=== PATIENT | male | born 1945 | race Caucasian/White ===

== ENCOUNTER 2021-07-27 14:28 | Inpatient (IN) | payer MEDICARE, SELFPAY ==
[2021-07-27] VITALS (45 sets, daily range): BP systolic 67–131; BP diastolic 34–91; PULSE 58–115; RESP 14–44; TEMP 36.4–36.6; O2SAT 90–100; BMI 26.9
--- NOTE | 2021-07-27 14:40 | P.HP_ITS ---
Providers/Chief Complaint Admitting Physician: Boogie Pugh MD Chief Complaint: GI Bleed History of Present Illness Adiel Nation III is a 76 year old male transferred from [facility] with history of blood in his stool, more maroon in nature currently. He reports early this morning he started having blood, and he has had 6 large bowel movements. The last one was approximately 2 hours ago. After arriving in the emergency department at [place] he was noted to be somewhat hypotensive. He was given fluid and eventually a low-dose of norepinephrine. Initial hemoglobin in the 10 range. He also received vitamin K. He reports never having history of a colonoscopy. There are some notes that he had an ERCP although he cannot remember this. He reports no vomiting. He is slightly nauseated. He did not have any pre-existing abdominal pain prior to the bleeding. He reports he has shortness of breath currently but this is chronic. He relates this to his CHF and COPD. No recent fevers. He is vaccinated for Covid. No cough. He does use aspirin daily as per his medication list. He is on Coumadin for atrial fibrillation. He does take ibuprofen on occasion. Upon arrival to [facility] he did have a bowel movement, with dark stool. Review of Systems General: Reports: 10 or more systems reviewed and unremarkable except in HPI and below Const: Denies: fever(s) or chills Eyes: Denies: change in vision ENMT: Denies: throat pain Card: Denies: chest pain Resp: Reports: dyspnea; Denies: productive cough or non-productive cough GI: Reports: hematochezia; Denies: abdominal pain or vomiting : Denies: flank pain Musc: Denies: neck pain Skin/Breast: Denies: rash Neuro: Denies: headache(s) Psych: Denies: anxiety or depression Endo: Denies: polyuria Ron/Lymph: Denies: easy bruising All/Imm: Denies: urticaria PFSH Acute PFSH: Medical History (Updated 07/27/21 @ 14:51 by Boogie Pugh MD) Atrial fibrillation Carotid artery stenosis CHF (congestive heart failure) Chronic kidney disease COPD (chronic obstructive pulmonary disease) Gout History of common carotid artery stent placement Restless leg syndrome Sleep apnea Type 2 diabetes mellitus Surgical History (Updated 07/27/21 @ 14:51 by Boogie Pugh MD) History of amputation Several toes following cardiac surgery History of coronary artery bypass graft Mitral valve replaced Tissue valve Family History (Updated 07/27/21 @ 15:03 by Boogie Pugh MD) Other CAD (coronary artery disease) Social History (Updated 07/27/21 @ 15:03 by Boogie Pugh MD) Smoking and tobacco status: former smoker Alcohol intake: never Physical Exam Narrative: EXAM NARRATIVE: General exam no apparent distress HEENT: Pupils equally round. Oropharynx clear. Neck is supple no lymphadenopathy thyromegaly Cardiovascular irregular, irregular without murmur Lungs clear to auscultation bilaterally. Diminished breath sounds are noted bilaterally Abdomen is soft, positive bowel sounds. No significant tenderness. No obvious organomegaly. exam is deferred Extremities no cyanosis clubbing or edema, cap refill brisk Skin no rash Neuro no obvious focal deficits. Data Other data: White blood cell count 10.1, hemoglobin 10.4, platelet count 185 Occult blood stool positive INR 3.1 Sodium 138, potassium 5.5, chloride 103, bicarb 24, creatinine 1.96, calcium 8.6, albumin 3.5, bilirubin 0.6, alk phosphatase 87, AST 14, ALT 12 CTA abdomen and pelvis demonstrates acute sigmoid diverticulitis with no perforation or abscess, stable 3.3 abdominal aortic aneurysm. Cholelithiasis, prostate enlargement are noted EKG demonstrates atrial fibrillation, normal axis, Q waves inferiorly, rate of 85 A&P Assessment and plan (1) GI bleed: Acute GI bleed, bright red blood per rectum according to family, patient. CT scan demonstrated diverticulitis which could be consistent with bright red blood per rectum. Vitamin K given at outside hospital. Repeat INR here. Serial hemoglobins Hypotension associated with GI bleed, improved with IV fluids. Continue to monitor closely. Will try to avoid lower GI intervention(colonoscopy) currently secondary to diverticulitis. Protonix IV every 12 hours secondary to dark stools seen here more consistent with upper bleeding Check lactate On presentation here patient has dark stool more suggestive of upper GI bleeding. Consider upper endoscopy in the near future for delineation. GI consulted. Status: Acute (2) Anemia: Secondary to above, see above Status: Acute (3) Hypotension: Improved with fluids. Continue to monitor. Status: Acute (4) Diverticulitis: Cipro and Flagyl IV Blood cultures Status: Acute (5) Acute kidney injury: Serial creatinine Status: Acute (6) Hyperkalemia: Mild elevation. Recheck in a.m. Status: Acute Additional A&P Information Chronic kidney disease History of mitral valve replacement, tissue valve. History of atrial fibrillation. Hold anticoagulation. Restart beta-venkatesh when possible. COPD. No evidence of exacerbation. DuoNeb as needed Diabetes type 2. Sliding scale insulin. Coronary artery disease with history of prior bypass. Currently no chest discomfort. CHF, unknown type, currently without decompensation Multiple other medical problems as outlined in past medical history Full code SCDs for DVT prophylaxis. Anticoagulation contraindicated secondary to GI bleeding. Attestations Medical Necessity Statement*: Will need greater than 2 midnight stay for evaluation and treatment of GI bleeding, diverticulitis, anemia, hypotension Time Spent in Patient Care: Greater than 35 minutes Critical Care Time: Critical Care Time (min): 56 Other Attestations: The high probability of a clinically significant, sudden or life threatening deterioration of the patient's [pulmonary, renal, infectious disease, GI] system(s) required my full and direct attention, intervention and personal management. The critical care time is as shown. 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
--- NOTE | 2021-07-27 14:50 | XR_ITS ---
WS: [id number] XR chest 1V portable [id number] REASON FOR EXAM: dyspnea FINDINGS: Status post coronary artery bypass surgery. Mild ectasia and tortuosity thoracic aorta. The heart is mildly enlarged. No active pulmonary parenchymal or pleural disease is identified. Mild degenerative changes in the mid and lower thoracic spine. XR/XR chest 1V portable [id number] IMPRESSION: No acute chest abnormality.
[2021-07-27] MEDS: metroNIDAZOLE IV 500 MG/100 ML PREMIX 100 MG IV ×2 (15:43→22:50)
[2021-07-27] MEDS: pantoprazole 40 mg SDV IVP (15:43)
[2021-07-27] MEDS: sodium chloride 0.9% 1,000 ML 75 ML IV (15:43)
[2021-07-27 16:40] LABS: Basophils % 0.3 %; Eosinophils # 0.1 10^3/uL (0.0-0.8); Eosinophils % 0.7 %; Hematocrit 23.8 % (42.0-52.0); Hemoglobin 7.5 g/dL (11.7-16.6); Lymphocytes # 1.2 10^3/uL (0.8-4.8); Lymphocytes % 14.1 %; Mean Corpuscular HGB Conc 31.5 g/dL (30.0-36.0); Mean Corpuscular Hemoglobin 30.2 pg (28.0-34.0); Mean Platelet Volume 11.7 fL (7.4-10.4); Monocytes # 0.7 10^3/uL (0.2-0.9); Monocytes % 7.9 %; Neutrophils % 76.8 %; Nucleated Red Blood Cells % 0 %; Platelet Count 172 10^3/cmm (130-400); Red Blood Count 2.48 10^6/uL (4.1-5.3); Red Cell Distribution Width 15.1 % (12.1-15.1); White Blood Count 8.6 10^3/uL (4.0-10.0)
[2021-07-27 16:53] LABS: INR 2.28 (0.8-1.2)
[2021-07-27 17:09] LABS: Alanine Aminotransferase 9 U/L (0-41); Alkaline Phosphatase 61 IU/L (40-130); Anion Gap 13.4 (5-19); Aspartate Amino Transferase 9 U/L (0-40); Blood Urea Nitrogen 70 mg/dL (8-23); Calcium 7.7 mg/dL (8.5-10.5); Carbon Dioxide 21 mmol/L (22-29); Chloride 107 mmol/L (98-107); Globulin 2.1 g/dL (1.3-4.6); Glucose 152 mg/dL (65-115); Osmolality Calculated 305 mOsm/kg (285-295); Potassium 5.4 mmol/L (3.5-5.1); Sodium 136 mmol/L (136-145); Total Bilirubin 0.4 mg/dL (0.15-1.2); Total Protein 5.1 g/dL (6.6-8.7)
[2021-07-27] MEDS: HYDROcodone-acetaminophen 5-325 mg Tablet 1 TAB PO (17:47)
[2021-07-27] MEDS: pantoprazole 40 MG in sodium chloride 0.9% (plus) 100 ML 20 MG IV ×2 (17:47→22:55)
[2021-07-27 17:51] LABS: Glucose Point of Care 172 mg/dL (70-110)
[2021-07-27] MEDS: sodium chloride 0.9% (100 ml) 100 ML (20:52)
[2021-07-27 22:22] LABS: Glucose Point of Care 142 mg/dL (70-110)
[2021-07-27] MEDS: HYDROcodone-acetaminophen 5-325 mg Tablet 2 TAB PO (22:49)
[2021-07-27] MEDS: insulin lispro 100 unit/1 mL SUBCUT (22:53)
[2021-07-27] MEDS: ciprofloxacin 400 MG/200 ML PREMIX 200 MG IV (22:56)
--- NOTE | 2021-07-27 22:59 | PC.NURSE ---
Addendum entered by Toby Jennings RN 07/28/21 00:14: witnessed blood transfusion verification Original Note: Secondary check of blood product conducted with Toby (Charge nurse at 2003), blood transfusion started at 2004, and first set of vitals taken at 1999. Blood infusion completed at 2259 and last set of vitals at 2303. Transfusion went well, with no complications.
[2021-07-28] VITALS (74 sets, daily range): BP systolic 76–132; BP diastolic 31–75; PULSE 0–110; RESP 14–40; TEMP 36.4–37.2; O2SAT 84–100; BMI 27.2
[2021-07-28 00:49] LABS: Hematocrit 25.6 % (42.0-52.0); Hemoglobin 8.1 g/dL (11.7-16.6)
[2021-07-28 01:10] LABS: Potassium 4.8 mmol/L (3.5-5.1)
[2021-07-28] MEDS: metroNIDAZOLE IV 500 MG/100 ML PREMIX 100 MG IV ×3 (02:45→20:04)
[2021-07-28] MEDS: pantoprazole 40 MG in sodium chloride 0.9% (plus) 100 ML 20 MG IV ×3 (04:25→13:23)
[2021-07-28 05:19] LABS: Basophils % 0.4 %; Eosinophils # 0.1 10^3/uL (0.0-0.8); Eosinophils % 1.7 %; Hematocrit 26.7 % (42.0-52.0); Hemoglobin 8.3 g/dL (11.7-16.6); Lymphocytes # 1.4 10^3/uL (0.8-4.8); Lymphocytes % 19.4 %; Mean Corpuscular HGB Conc 31.1 g/dL (30.0-36.0); Mean Corpuscular Hemoglobin 30.6 pg (28.0-34.0); Mean Corpuscular Volume 98.5 fl (80-94); Mean Platelet Volume 11.4 fL (7.4-10.4); Monocytes # 0.8 10^3/uL (0.2-0.9); Monocytes % 11.4 %; Neutrophils % 66.7 %; Nucleated Red Blood Cells % 0 %; Platelet Count 128 10^3/cmm (130-400); Red Blood Count 2.71 10^6/uL (4.1-5.3); Red Cell Distribution Width 15.4 % (12.1-15.1); White Blood Count 7.2 10^3/uL (4.0-10.0)
[2021-07-28 05:22] LABS: Add Urine Microscopic? NO; Charge for UA Resulting for Rev
[2021-07-28 05:26] LABS: Urine Appearance Clear (CLEAR); Urine Color Yellow (Yellow); pH Urine 5 (5-7)
[2021-07-28 05:27] LABS: Bilirubin Urine Neg (Negative); Blood Urine Neg (Negative); Glucose Urine UA Norm (Normal); Ketones Urine Negative (Negative); Leukocyte Esterase Urine Negative (Negative); Nitrate Urine Negative (Negative); Protein Urine Neg (Negative); Urobilinogen Urine Norm (Negative)
[2021-07-28 05:47] LABS: Alanine Aminotransferase 9 U/L (0-41); Albumin Level 3.1 g/dL (3.5-5.2); Alkaline Phosphatase 59 IU/L (40-130); Anion Gap 12.6 (5-19); Aspartate Amino Transferase 13 U/L (0-40); Blood Urea Nitrogen 66 mg/dL (8-23); Carbon Dioxide 21 mmol/L (22-29); Chloride 110 mmol/L (98-107); Globulin 2.1 g/dL (1.3-4.6); Glucose 109 mg/dL (65-115); Osmolality Calculated 308 mOsm/kg (285-295); Potassium 4.6 mmol/L (3.5-5.1); Sodium 139 mmol/L (136-145); Total Bilirubin 0.6 mg/dL (0.15-1.2); Total Protein 5.2 g/dL (6.6-8.7)
--- NOTE | 2021-07-28 06:36 | PC.NURSE ---
Shift Note Frequent safety and comfort rounds continue. Orders and/or nursing care completed as indicated. Patient monitored for response to intervention and treatment(s). Education provided patient and spouse. The patient received during the shift 1 unit of Whole blood. The H/H this morning was 8.5, despite the patient having three tarry/bloody stools during the night. Patient reports having 6/10 pain in the lower extremities, but remains in good spirits. AOX4, and is able to stand up and use the bedside commode. Currently the patient has a protonix drip running and a maintenance fluide of NS at 75 mLs/hr. Several times the monitor showed that the patient was hypotensive, yet the patient was never systematic and typically was moving around in the bed when the blood pressure cuff was tightening. The patient was also restless at times, constantly turning in the bed.
[2021-07-28 07:27] LABS: Glucose Point of Care 125 mg/dL (70-110)
--- NOTE | 2021-07-28 07:36 | PC.NURSE ---
check done then down to gi lab with crew at this time per wheel chair
--- NOTE | 2021-07-28 07:45 | P.ANESASSM_ITS ---
Pre-Anesthetic Assessment Pre-Anesthetic Assessment: Height/Weight: Height 1.75 m Weight 83.631 kg Temp Pulse Resp BP Pulse Ox 97.6 F 104 H 34 H 103/49 100 07/28/21 04:00 07/28/21 06:00 07/28/21 05:45 07/28/21 05:45 07/28/21 05:45 Preop Diagnosis: GI Bleed Proposed Procedure: Operation Date: 07/28/21 08:00 Proposed Procedures p EGD(Not Applicable) - Librado Duval MD Was Beta Dewayne taken within 24 hours: N/A Was Clonidine taken within 24 hours: N/A Last intake: Food 07/26/21 Liquids 07/27/21 Social: Social History: No alcohol and No tobacco Exam: Pre-Anes Outpt Exam: alert, oriented x 3 and clear to auscultation bilaterally (coarse) Airway: Submandibular: WNL Cervical ROM: WNL MP: 2 Dentition: False History/ROS: No significant history except as noted Pulmonary: Pulmonary: COPD, Sleep apnea and SOB CV/HEM: CV/HEM: Afib, Anemia, CAD, CHF, HTN and IN Comments: CABG 2005 6 vessel with MVR 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 Warfarin taken 07/26/21 : : Chronic renal failure Hepatic: Hepatic: None reported GI: GI: None reported Musc/skel: Musc/skel: Lower Back Pain Neuropsych: Neuropsych: None reported Anesthetic Plan: ASA status: 3 Anesthesia: MAC Risk of > 500 ml blood loss (7ml/kg in children): No Meds/Allergies Current Medications: Current Medications Generic Name Dose Route Start Last Admin Trade Name Freq PRN Reason Stop Dose Admin Hydrocodone Bitart /Acetaminophen 2 tab 07/27/21 21:28 07/27/21 22:49 Hydrocodone-Acet aminophen 5-325 Mg Tablet PO 2 tab Q4H PRN Administration MODERATE PAIN Sodium Chloride 1,000 mls @ 75 ml s/hr 07/27/21 14:45 07/28/21 07:06 Sodium Chloride 0.9% IV Infused .[id number] NEELIMA Infusion Metronidazole 500 mg in 100 mls @ 100 mls/hr 07/27/21 14:45 07/28/21 03:45 Flagyl Iv IV Infused Q6H NEELIMA Infusion Protocol Ciprofloxacin/Dext jc 400 mg in 200 mls @ 200 mls/hr 07/27/21 23:45 07/27/21 23:56 Cipro IV Infused Q12H NEELIMA Infusion Protocol Pantoprazole Sodiu m 40 mg/ 100 mls @ 20 mls/ hr 07/27/21 15:30 07/28/21 04:25 Sodium Chloride IV 8 mg/hr .Q5H NEELIMA 20 mls/hr Administration 8 MG/HR Insulin Human Lisp ro 0 unit 07/27/21 18:00 07/28/21 07:26 Insulin Lispro 1 00 Unit/1 Ml SUBCUT Not Given WM&BEDTIME NEELIMA Protocol PFSH Anesthesia PFSH: Medical History (Updated 07/27/21 @ 14:51 by Boogie Pugh MD) Atrial fibrillation Carotid artery stenosis CHF (congestive heart failure) Chronic kidney disease COPD (chronic obstructive pulmonary disease) Gout History of common carotid artery stent placement Restless leg syndrome Sleep apnea Type 2 diabetes mellitus Surgical History (Updated 07/27/21 @ 14:51 by Boogie Pugh MD) History of amputation Several toes following cardiac surgery History of coronary artery bypass graft Mitral valve replaced Tissue valve Family History (Updated 07/27/21 @ 15:03 by Boogie Pugh MD) Other CAD (coronary artery disease) Social History (Updated 07/27/21 @ 15:03 by Boogie Pugh MD) Smoking and tobacco status: former smoker Alcohol intake: never Data Anesthesia CBC & Chem 7: 07/28/21 04:30 07/28/21 04:30 Other Labs: Laboratory Results - last 48 hr 07/27/21 07/27/21 07/27/21 16:22 16:22 16:22 WBC 8.6 RBC 2.48 L Hgb 7.5 L Hct 23.8 L MCV 96.0 H MCH 30.2 MCHC 31.5 RDW 15.1 Plt Count 172 MPV 11.7 H Neut % (Auto) 76.8 Lymph % (Auto) 14.1 [place] % (Auto) 7.9 Eos % (Auto) 0.7 Baso % (Auto) 0.3 Neut # (Auto) 6.60 Lymph # (Auto) 1.2 [place] # (Auto) 0.7 Eos # (Auto) 0.1 Baso # (Auto) 0.0 Nucleated RBC % (auto) 0 Nucleated RBCs # 0.0 PT 25.60 H INR 2.28 H Sodium Potassium Chloride Carbon Dioxide Anion Gap BUN Creatinine GFR Calculation Glucose POC Glucose Calculated Osmolality Lactate Calcium Total Bilirubin AST ALT Alkaline Phosphatase Total Protein Albumin Globulin Urine Color Urine Appearance Urine pH Ur Specific [place] Urine Protein Urine Glucose (UA) Urine Ketones Urine Blood Urine Nitrate Urine Bilirubin Urine Urobilinogen Ur Leukocyte Esterase Blood Type O Positive Rho(D) Type Positive Antibody Screen Negative Crossmatch See Detail 07/27/21 07/27/21 07/27/21 16:22 16:22 17:48 WBC RBC Hgb Hct MCV MCH MCHC RDW Plt Count MPV Neut % (Auto) Lymph % (Auto) [place] % (Auto) Eos % (Auto) Baso % (Auto) Neut # (Auto) Lymph # (Auto) [place] # (Auto) Eos # (Auto) Baso # (Auto) Nucleated RBC % (auto) Nucleated RBCs # PT INR Sodium 136 Potassium 5.4 H Chloride 107 Carbon Dioxide 21 L Anion Gap 13.4 BUN 70 H Creatinine 1.5 H GFR Calculation Not Reportable Glucose 152 H POC Glucose 172 H Calculated Osmolality 305 H Lactate 2.0 Calcium 7.7 L Total Bilirubin 0.4 AST 9 ALT 9 Alkaline Phosphatase 61 Total Protein 5.1 L Albumin 3.0 L Globulin 2.1 Urine Color Urine Appearance Urine pH Ur Specific [place] Urine Protein Urine Glucose (UA) Urine Ketones Urine Blood Urine Nitrate Urine Bilirubin Urine Urobilinogen Ur Leukocyte Esterase Blood Type Rho(D) Type Antibody Screen Crossmatch 07/27/21 07/28/21 07/28/21 22:10 00:39 00:39 WBC RBC Hgb 8.1 L Hct 25.6 L MCV MCH MCHC RDW Plt Count MPV Neut % (Auto) Lymph % (Auto) [place] % (Auto) Eos % (Auto) Baso % (Auto) Neut # (Auto) Lymph # (Auto) [place] # (Auto) Eos # (Auto) Baso # (Auto) Nucleated RBC % (auto) Nucleated RBCs # PT INR Sodium Potassium 4.8 Chloride Carbon Dioxide Anion Gap BUN Creatinine GFR Calculation Glucose POC Glucose 142 H Calculated Osmolality Lactate Calcium Total Bilirubin AST ALT Alkaline Phosphatase Total Protein Albumin Globulin Urine Color Urine Appearance Urine pH Ur Specific [place] Urine Protein Urine Glucose (UA) Urine Ketones Urine Blood Urine Nitrate Urine Bilirubin Urine Urobilinogen Ur Leukocyte Esterase Blood Type Rho(D) Type Antibody Screen Crossmatch 07/28/21 07/28/21 07/28/21 03:00 04:30 04:30 WBC 7.2 RBC 2.71 L Hgb 8.3 L Hct 26.7 L MCV 98.5 H MCH 30.6 MCHC 31.1 RDW 15.4 H Plt Count 128 L MPV 11.4 H Neut % (Auto) 66.7 Lymph % (Auto) 19.4 [place] % (Auto) 11.4 Eos % (Auto) 1.7 Baso % (Auto) 0.4 Neut # (Auto) 4.80 Lymph # (Auto) 1.4 [place] # (Auto) 0.8 Eos # (Auto) 0.1 Baso # (Auto) 0.0 Nucleated RBC % (auto) 0 Nucleated RBCs # 0.0 PT INR Sodium 139 Potassium 4.6 Chloride 110 H Carbon Dioxide 21 L Anion Gap 12.6 BUN 66 H Creatinine 1.5 H GFR Calculation Not Reportable Glucose 109 POC Glucose Calculated Osmolality 308 H Lactate Calcium 8.0 L Total Bilirubin 0.6 AST 13 ALT 9 Alkaline Phosphatase 59 Total Protein 5.2 L Albumin 3.1 L Globulin 2.1 Urine Color Yellow Urine Appearance Clear Urine pH 5 Ur Specific [place] 1.010 Urine Protein Neg Urine Glucose (UA) Norm Urine Ketones Negative Urine Blood Neg Urine Nitrate Negative Urine Bilirubin Neg Urine Urobilinogen Norm Ur Leukocyte Esterase Negative Blood Type Rho(D) Type Antibody Screen Crossmatch 07/28/21 07:23 WBC RBC Hgb Hct MCV MCH MCHC RDW Plt Count MPV Neut % (Auto) Lymph % (Auto) [place] % (Auto) Eos % (Auto) Baso % (Auto) Neut # (Auto) Lymph # (Auto) [place] # (Auto) Eos # (Auto) Baso # (Auto) Nucleated RBC % (auto) Nucleated RBCs # PT INR Sodium Potassium Chloride Carbon Dioxide Anion Gap BUN Creatinine GFR Calculation Glucose POC Glucose 125 H Calculated Osmolality Lactate Calcium Total Bilirubin AST ALT Alkaline Phosphatase Total Protein Albumin Globulin Urine Color Urine Appearance Urine pH Ur Specific [place] Urine Protein Urine Glucose (UA) Urine Ketones Urine Blood Urine Nitrate Urine Bilirubin Urine Urobilinogen Ur Leukocyte Esterase Blood Type Rho(D) Type Antibody Screen Crossmatch Micro: Microbiology 07/27/21 16:20 Blood Culture - Preliminary Blood SPECIMEN COLLECTED 07/27/21 16:22 Blood Culture - Preliminary Blood SPECIMEN COLLECTED Cardiac Studies: No Data to Display
[2021-07-28 07:47] LABS: INR 1.33 (0.8-1.2)
[2021-07-28] MEDS: sodium chloride 0.9% 1,000 ML 30 ML IV (07:48)
--- NOTE | 2021-07-28 08:20 | PM.CONSULT ---
Providers/Reason For Consult Consulting Physician/Specialty*: Internal medicine/endoscopy Reason for Consult*: Anemia due to GI blood loss Attending Physician: Theresa Pagan MD History of Present Illness History of Present Illness Adiel Nation III is a 76 year old male who presented to our hospital as a transfer from [place] yesterday. Dr. Pugh was contacted regarding his acute onset of either red blood or black stools in copious amounts. He became hypotensive in [place] and was eventually even given pressors and fluid. I was consulted because there was a notion that he was having black tarry stools and that perhaps he needed a somewhat urgent upper endoscopy to plicate any bleeding sources. By report, his CT in [place] revealed that he has diverticulitis as well. This is somewhat confounding given his presentation. I am dictating this note somewhat out of order, as I have already performed an EGD on him that is completely bland. I spoke with the nurses in the ICU and they did comment that his stool was dark and that there was no bright red blood noted. This morning his warfarin seems to be reversed and his hemoglobin is 8.8. Review of Systems General: Reports: 10 or more systems reviewed and unremarkable except in HPI and below Meds/Allergies Home Medications and Allergies Home Medications Medication Instructions Recorded Confirmed Last Taken Type albuterol sulfate INHALATION 07/27/21 Unknown History allopurinol PO BID 07/27/21 Unknown History carvedilol PO BID 07/27/21 Unknown History furosemide PO 07/27/21 Unknown History hydrocodone-acetaminophen PO PRN 07/27/21 Unknown History potassium chloride meq PO TID 07/27/21 Unknown History ropinirole mg PO BID 07/27/21 Unknown History warfarin PO 07/27/21 Unknown History Allergies Allergy/AdvReac Type Severity Reaction Status Date / Time morphine Allergy Mild ADR-Confusi Verified 07/27/21 16:28 on Penicillins Allergy ALGY-Rash Verified 07/27/21 16:28 Current Medications Current Medications Generic Name Dose Route Start Last Admin Trade Name Freq PRN Reason Stop Dose Admin Hydrocodone Bitart/Acetaminophen 2 tab 07/27/21 21:28 07/27/21 22:49 Hydrocodone-Acetaminophen 5-325 Mg Tablet PO 2 tab Q4H PRN Administration MODERATE PAIN Sodium Chloride 1,000 mls @ 75 mls/hr 07/27/21 14:45 07/28/21 07:06 Sodium Chloride 0.9% IV Infused .[id number] NEELIMA Infusion Metronidazole 500 mg in 100 mls @ 100 mls/hr 07/27/21 14:45 07/28/21 03:45 Flagyl Iv IV Infused Q6H NEELIMA Infusion Protocol Ciprofloxacin/Dextrose 400 mg in 200 mls @ 200 mls/hr 07/27/21 23:45 07/27/21 23:56 Cipro IV Infused Q12H NEELIMA Infusion Protocol Pantoprazole Sodium 40 mg/ 100 mls @ 20 mls/hr 07/27/21 15:30 07/28/21 04:25 Sodium Chloride IV 8 mg/hr .Q5H NEELIMA 20 mls/hr Administration 8 MG/HR Sodium Chloride 1,000 mls @ 30 mls/hr 07/28/21 08:00 07/28/21 07:48 Sodium Chloride 0.9% IV 30 mls/hr .Q24H NEELIMA Administration Insulin Human Lispro 0 unit 07/27/21 18:00 07/28/21 07:26 Insulin Lispro 100 Unit/1 Ml SUBCUT Not Given WM&BEDTIME NEELIMA Protocol PFSH Acute PFSH: Medical History (Updated 07/27/21 @ 14:51 by Boogie Pugh MD) Atrial fibrillation Carotid artery stenosis CHF (congestive heart failure) Chronic kidney disease COPD (chronic obstructive pulmonary disease) Gout History of common carotid artery stent placement Restless leg syndrome Sleep apnea Type 2 diabetes mellitus Surgical History (Updated 07/27/21 @ 14:51 by Boogie Pugh MD) History of amputation Several toes following cardiac surgery History of coronary artery bypass graft Mitral valve replaced Tissue valve Family History (Updated 07/27/21 @ 15:03 by Boogie Pugh MD) Other CAD (coronary artery disease) Social History (Updated 07/27/21 @ 15:03 by Boogie Pugh MD) Smoking and tobacco status: former smoker Alcohol intake: never Vitals/I&O/Wt Last Vital Signs Temp 97.6 F 07/28/21 07:38 Pulse 85 07/28/21 07:38 Resp 18 07/28/21 07:38 BP 126/47 07/28/21 07:38 Pulse Ox 99 07/28/21 07:38 07/27/21 07/28/21 07/28/21 22:59 06:59 14:59 Intake Total 626 / 626 500 / 1126 1000 / 1000 Output Total 200 / 200 435 / 635 Balance 426 / 426 65 / 491 1000 / 1000 Weight last 48 hrs Weight 184 lb 6 oz Weight 182 lb Physical Exam Narrative: EXAM NARRATIVE: When I examined him his abdomen was soft and perhaps vaguely tender. Data Micro: Micro: Microbiology 07/27/21 16:20 Blood Culture - Pr eliminary Blood SPECIMEN [facility] 07/27/21 16:22 Blood Culture - Pr eliminary Blood SPECIMEN [facility] A&P Assessment and plan (1) GI bleed: Given his bland EGD, I can only assume that this is most likely bleeding from his diverticular source. It is somewhat confounding that the reports are that it is dark stool. We are handcuffed to a degree since we have diagnosed him with diverticulitis, we are not able to perform a colonoscopy for some time. By report he has never had a colonoscopy. I recommended that we continue to keep him off of his warfarin, treat his diverticulitis, and plan for an endoscopy in some weeks. Understanding this will put him at some risk for thromboembolic event, but the risk of perforation is quite high. 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
[2021-07-28 08:42] LABS: Glucose Point of Care 139 mg/dL (70-110)
[2021-07-28] MEDS: HYDROcodone-acetaminophen 5-325 mg Tablet 2 TAB PO ×3 (09:07→20:04)
--- NOTE | 2021-07-28 10:41 | PC.NURSE ---
back from gi lab earlier. ns infusing and protonix restarted
[2021-07-28] MEDS: ciprofloxacin 400 MG/200 ML PREMIX 200 MG IV ×2 (11:15→23:44)
[2021-07-28 11:25] LABS: Glucose Point of Care 200 mg/dL (70-110)
[2021-07-28] MEDS: insulin lispro 100 unit/1 mL SUBCUT (11:30)
--- NOTE | 2021-07-28 14:19 | P.PN_ITS ---
Subjective Subjective: Interval history: Status post EGD today as soon as he returned from EGD patient had a large bowel movement with blood clots and melanotic stools mixed with bright bleeding Hemodynamically stable, off levo Did discuss with Dr. Duval, unfortunately we cannot scope him because of diverticulitis, most likely this is related to diverticular bleed We will keep him in ICU for next 24-hour monitoring Patient is not endorsing any abdominal pain, Vitals/I&O/Wt Last Vital Signs Temp 97.6 F 07/28/21 07:38 Pulse 85 07/28/21 13:00 Resp 24 H 07/28/21 13:00 BP 113/58 07/28/21 13:00 Pulse Ox 94 07/28/21 11:30 07/27/21 07/28/21 07/28/21 22:59 06:59 14:59 Intake Total 626 / 626 500 / 1126 1393.333 / 1393.333 Output Total 200 / 200 435 / 635 Balance 426 / 426 65 / 491 1393.333 / 1393.333 Weight last 48 hrs Weight 83.631 kg Weight 82.554 kg Physical Exam Narrative: EXAM NARRATIVE: Patient was seen and examined in the ICU S1, S2 sinus rhythm No murmur appreciated Abdomen soft Melanotic stools with bright bleeding in the stool container noted EOMI, PERRLA No neurological deficit Saturating well on room air no audible stridor or wheezing Data : 07/28/21 04:30 07/28/21 04:30 Micro: Microbiology 07/27/21 16:20 Blood Culture - Preliminary Blood SPECIMEN COLLECTED 07/27/21 16:22 Blood Culture - Preliminary Blood SPECIMEN COLLECTED A&P Assessment and plan (1) Hypotension: Status: Acute (2) GI bleed: Status: Acute (3) Anemia: Status: Acute (4) Diverticulitis: Status: Acute (5) Acute kidney injury: Status: Acute (6) Hyperkalemia: Status: Acute Additional A&P Information Acute blood loss anemia Diverticular bleed Normal EGD Off Levophed Currently hemodynamically stable Monitor in ICU for next 24 hours Status post 1 unit PRBC We will transfuse second unit if we notice persistent hematochezia/melanotic stools ALYSHA related to hypotension currently off vasopressors, continue IV fluids with clear liquid diet plan Clear liquid diet DVT prophylaxis contraindicated patient takes Coumadin for history of A. fib and valve repair,Valvular afib? 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
[2021-07-28 14:44] LABS: Hematocrit 22.7 % (42.0-52.0); Hemoglobin 7.3 g/dL (11.7-16.6)
[2021-07-28 16:54] LABS: Glucose Point of Care 92 mg/dL (70-110)
--- NOTE | 2021-07-28 17:28 | NUR.SHIFT ---
Shift Note Frequent safety and comfort rounds continue. Orders and/or nursing care completed as indicated. Patient monitored for response to intervention and treatment(s). Education provided includes[]. Patient and/or aware of egd results. Will continue to monitor. has had a few loose dark bms noted today up on side of bed and blood pressure remains stable, at bedside for visitation
[2021-07-28 20:57] LABS: Hematocrit 22.5 % (42.0-52.0); Hemoglobin 7.2 g/dL (11.7-16.6)
[2021-07-28 21:40] LABS: Vitamin B12 342 pg/mL (232-1245)
[2021-07-28] MEDS: sodium chloride 0.9% (100 ml) 100 ML 10 ML (22:05)
[2021-07-29] VITALS (23 sets, daily range): BP systolic 99–139; BP diastolic 50–81; PULSE 67–92; RESP 13–28; TEMP 36.4–36.9; O2SAT 82–100
[2021-07-29] MEDS: HYDROcodone-acetaminophen 5-325 mg Tablet 2 TAB PO ×2 (00:12→07:47)
[2021-07-29] MEDS: metroNIDAZOLE IV 500 MG/100 ML PREMIX 100 MG IV ×2 (03:34→08:36)
[2021-07-29] MEDS: pantoprazole 40 mg SDV IVP (03:35)
[2021-07-29 06:54] LABS: Basophils % 0.6 %; Eosinophils # 0.2 10^3/uL (0.0-0.8); Eosinophils % 3.9 %; Hematocrit 27.3 % (42.0-52.0); Hemoglobin 8.2 g/dL (11.7-16.6); Lymphocytes # 1.1 10^3/uL (0.8-4.8); Lymphocytes % 20.6 %; Mean Corpuscular Hemoglobin 31.2 pg (28.0-34.0); Mean Corpuscular Volume 103.8 fl (80-94); Monocytes # 0.5 10^3/uL (0.2-0.9); Monocytes % 9.9 %; Neutrophils # 3.45 10^3/uL (1.8-7.7); Neutrophils % 64.1 %; Nucleated Red Blood Cells % 0 %; Platelet Count 133 10^3/cmm (130-400); Red Blood Count 2.63 10^6/uL (4.1-5.3); Red Cell Distribution Width 15.6 % (12.1-15.1); White Blood Count 5.4 10^3/uL (4.0-10.0)
[2021-07-29 07:27] LABS: Anion Gap 16.1 (5-19); Blood Urea Nitrogen 26 mg/dL (8-23); Calcium 7.9 mg/dL (8.5-10.5); Carbon Dioxide 19 mmol/L (22-29); Chloride 107 mmol/L (98-107); Glucose 94 mg/dL (65-115); Osmolality Calculated 291 mOsm/kg (285-295); Potassium 4.1 mmol/L (3.5-5.1); Sodium 138 mmol/L (136-145)
[2021-07-29 07:33] LABS: Glucose Point of Care 115 mg/dL (70-110)
--- NOTE | 2021-07-29 10:18 | PC.NURSE ---
Patient rounding done. Patient Sitting on side of bed and tripoding using the beside table. Offered to help sit in chair, but patient refused. Patient said that he is more comfortable sitting on side of bed.
--- NOTE | 2021-07-29 10:49 | P.DS_ITS ---
Discharge Providers Date of Admission: 07/27/21 14:28 Date of Discharge: July 29, 2021 Attending Provider at Admission: Boogie Pugh MD Attending Provider at Discharge: Theresa aPgan MD Diagnoses at Discharge Discharge Diagnosis (1) Hypotension: Status: Acute (2) GI bleed: Status: Acute (3) Anemia: Status: Acute (4) Diverticulitis: Status: Acute (5) Acute kidney injury: Status: Acute (6) Hyperkalemia: Status: Acute Reason for Visit Reason for Visit: GI Bleed Hospital Course Hospital Course History of Present Illness written by Dr. Disha Chun Deon Nation III is a 76 year old male transferred from [facility] with history of blood in his stool, more maroon in nature currently. He reports early this morning he started having blood, and he has had 6 large bowel movements. The last one was approximately 2 hours ago. After arriving in the emergency department at [place] he was noted to be somewhat hypotensive. He was given fluid and eventually a low-dose of norepinephrine. Initial hemoglobin in the 10 range. He also received vitamin K. He reports never having history of a colonoscopy. There are some notes that he had an ERCP although he cannot remember this. He reports no vomiting. He is slightly nauseated. He did not have any pre-existing abdominal pain prior to the bleeding. He reports he has shortness of breath currently but this is chronic. He relates this to his CHF and COPD. No recent fevers. He is vaccinated for Covid. No cough. He does use aspirin daily as per his medication list. He is on Coumadin for atrial fibrillation. He does take ibuprofen on occasion. Upon arrival to [facility] he did have a bowel movement, with dark stool. Hospital course Patient was kept in ICU for acute anemia related to GI blood loss, hypotension, initially required vasopressor for a few hours. Patient did receive 2 units of PRBC during hospitalization. First unit was given at the time of admission and second unit after his EGD. EGD done by Dr. Duval was unremarkable. For diverticulitis he was kept on ciprofloxacin and Flagyl. After EGD he only had 1 maroon color bowel movement. Hemodynamically he remained stable, he did not experience any worsening abdominal pain. On 07/29 patient is requesting to be discharged home. Plan has been devised to follow-up with CBC on Friday and see Dr. Duval for colonoscopy after 2 weeks once inflammation has subsided. Finished 10 days of ciprofloxacin and Flagyl regimen. Patient to continue GI soft diet. Hold anticoagulating agent for at least 2 weeks. Also holding Lasix and potassium supplementation for 7 days. Patient was saturating well on room air he does not require oxygen, systolic blood pressure 115 mmHg at the time of discharge. Physical Exam Narrative: EXAM NARRATIVE: Patient was comfortably laying in his bed Saturating well on room air Systolic blood pressure 150 mmhg Abdomen soft bowel sounds present in all quadrants No active signs of peritonitis No rebound tenderness rigidity or guarding Lower extremity no edema Awake alert 0x3 nonfocal neuro exam Discharge Data Data Completed and Pending: Completed Studies During Hospitalization Category Date Time Status XR chest 1V marta ble [id number] Routine Exams 07/27/21 14:50 Completed Pending at discharge Category Date Time Status Blood Culture Sta t Lab 07/27/21 16:20 Results Labs from last 24 hours 07/29/21 07/29/21 07/29/21 07:15 06:30 06:30 WBC 5.4 RBC 2.63 L Hgb 8.2 L Hct 27.3 L MCV 103.8 H D MCH 31.2 MCHC 30.0 RDW 15.6 H Plt Count 133 MPV 11.0 H Neut % (Auto) 64.1 Lymph % (Auto) 20.6 [place] % (Auto) 9.9 Eos % (Auto) 3.9 Baso % (Auto) 0.6 Neut # (Auto) 3.45 Lymph # (Auto) 1.1 [place] # (Auto) 0.5 Eos # (Auto) 0.2 Baso # (Auto) 0.0 Nucleated RBC % (a uto) 0 Nucleated RBCs # 0.0 Sodium 138 Potassium 4.1 Chloride 107 Carbon Dioxide 19 L Anion Gap 16.1 BUN 26 H Creatinine 1.0 GFR Calculation Not Reportable Glucose 94 POC Glucose 115 H Calculated Osmolal ity 291 Calcium 7.9 L Vitamin B12 Blood Type Rho(D) Type Antibody Screen Crossmatch 07/28/21 07/28/21 07/28/21 20:32 16:48 14:25 WBC RBC Hgb 7.2 L 7.3 L Hct 22.5 L 22.7 L MCV MCH MCHC RDW Plt Count MPV Neut % (Auto) Lymph % (Auto) [place] % (Auto) Eos % (Auto) Baso % (Auto) Neut # (Auto) Lymph # (Auto) [place] # (Auto) Eos # (Auto) Baso # (Auto) Nucleated RBC % (a uto) Nucleated RBCs # Sodium Potassium Chloride Carbon Dioxide Anion Gap BUN Creatinine GFR Calculation Glucose POC Glucose 92 Calculated Osmolal ity Calcium Vitamin B12 Blood Type Rho(D) Type Antibody Screen Crossmatch 07/28/21 07/28/21 07/27/21 11:18 04:30 16:22 WBC RBC Hgb Hct MCV MCH MCHC RDW Plt Count MPV Neut % (Auto) Lymph % (Auto) [place] % (Auto) Eos % (Auto) Baso % (Auto) Neut # (Auto) Lymph # (Auto) [place] # (Auto) Eos # (Auto) Baso # (Auto) Nucleated RBC % (a uto) Nucleated RBCs # Sodium Potassium Chloride Carbon Dioxide Anion Gap BUN Creatinine GFR Calculation Glucose POC Glucose 200 H Calculated Osmolal ity Calcium Vitamin B12 342 Blood Type O Positive Rho(D) Type Positive Antibody Screen Negative Crossmatch See Detail Vitals: Last Vital Signs Temp 97.7 F 07/29/21 10:00 Pulse 74 07/29/21 10:00 Resp 18 07/29/21 10:00 BP 99/68 07/29/21 10:00 Pulse Ox 100 07/29/21 10:00 Discharge Plan Discharge Patient Disposition: Home Condition: Stable Prescriptions: New ciprofloxacin HCl 500 mg tablet 500 mg PO BID 10 Days Qty: 20 RF: 0 Flagyl 500 mg tablet 500 mg PO Q8H 10 Days Qty: 30 RF: 0 Continued allopurinol 100 mg tablet 100 mg PO BID RF: 0 ropinirole 1 mg tablet See Rx Instructions .ROUTE .COMPLEX RF: 0 albuterol sulfate 90 mcg/actuation HFA aerosol inhaler 2 puff INHALATION Q6H PRN (Reason: Shortness Of Breath) RF: 0 hydrocodone-acetaminophen 10-325 mg tablet 1 tab PO TID PRN (Reason: Pain) RF: 0 Changed pantoprazole 40 mg Tablet,Delayed Release (Dr/Ec) 40 mg PO BID 30 Days Qty: 60 RF: 0 Held furosemide 20 mg tablet 20 mg PO TID MDD see pharmacy comment RF: 0 Hold Instructions: Resume on 08/06/21. carvedilol 6.25 mg tablet 6.25 mg PO BID RF: 0 Hold Instructions: Resume on 08/02/21. potassium chloride 20 mEq tablet,ER particles/crystals 20 meq PO TID RF: 0 Hold Instructions: Resume on 08/06/21. Discharge Orders: Discharge Order (Routine); Ordered 07/29/21 Ordered By: Theresa Pagan Other Ambulatory Orders: Complete Blood Count w/Auto (Routine) Timeframe: 3 Days Location: Determined by Patient Ordered By: Theresa Pagan Referrals: Librado Duval MD [Physician] - 2 weeks (Colonoscopy ) Discharge Diet: GI Soft Discharge Activity: Increase activity as tolerated Patient Instructions: GI Discharge Instructions, Opioid Safety Activity Restrictions/Additional Instructions: Hold your blood thinner for at least 2 weeks, another CBC check on Friday, please do not take Lasix or potassium until next Friday because of your low blood pressure and active diarrhea Please finish 10 days of antibiotics for diverticulitis You will need outpatient colonoscopy within 2 weeks to look for the cause Discharge Attestations Time Spent in Discharge Care*: less than 30 min Quality Metrics Clinical Quality Measures During this hospital stay, did patient experience: None Coding Level of Care Code Acute [facility] note Diagnoses Hypotension I95.9 GI bleed K92.2 Anemia D64.9 Diverticulitis K57.92 Acute kidney injury N17.9 Hyperkalemia E87.5
--- NOTE | 2021-07-29 12:03 | PC.NURSE ---
Patient discharged on Friday. Was unable to make follow-up appointments. Educated patient on making appointments by self.
--- NOTE | 2021-07-29 12:12 | PC.NURSE ---
Discharge Note Patient discharged to home via wheelchair accompanied by . Discharge instructions reviewed with patient and/or customer assistance representative. Medication prescriptions went to [facility] pharmacy. Belongings/home medications returned. Clothing, ring, dentures, ring, and phone sent with patient and . Reinforced need to make appointments on Friday for blood work on Friday and doctors appointment in two weeks.
--- NOTE | 2021-07-30 16:51 | PC.RESP ---
PULMONARY REHAB INFORMATION SENT TO PATIENT.
--- NOTE | 2021-08-01 14:10 | PC.SOCIAL ---
discharge follow up call made, spoke with patients . she reports pt is doing good. taking cipro and flagyl as prescribed. patient will have repeat cbc drawn tomorrow in [facility]. is aware of holding carvedilol, furosemide and potassium as directed, she is aware of restart dates. per pt had a bm today and there was no blood noted. follow up appointment date and time for follow up with dr. robison given. denies questions or concerns at this time.
== END 2021-07-29 12:12 | disposition home or self-care (01) | DRG 811 ==
PROVIDERS: Internal Medicine; Admitting Provider Internal Medicine; Visit Provider Internal Medicine
PROC: 0DJ08ZZ Inspection of Upper Intestinal Tract, Via Natural or Artificial Opening Endoscopic (ICD-10-PCS; CPT 43235; principal; 2021-07-28 08:00)
DX: D62 Acute posthemorrhagic anemia (principal); K57.93 Diverticulitis of intestine, part unspecified, without perforation or abscess with bleeding; N17.9 Acute kidney failure, unspecified; K92.1 Melena; I48.91 Unspecified atrial fibrillation; I25.10 Atherosclerotic heart disease of native coronary artery without angina pectoris; I50.9 Heart failure, unspecified; E11.22 Type 2 diabetes mellitus with diabetic chronic kidney disease; N18.9 Chronic kidney disease, unspecified; J44.9 Chronic obstructive pulmonary disease, unspecified; G47.33 Obstructive sleep apnea (adult) (pediatric); I95.9 Hypotension, unspecified; E87.5 Hyperkalemia; Z95.828 Presence of other vascular implants and grafts; Z95.1 Presence of aortocoronary bypass graft; Z87.891 Personal history of nicotine dependence; Z89.429 Acquired absence of other toe(s), unspecified side; Z95.2 Presence of prosthetic heart valve; Z79.01 Long term (current) use of anticoagulants
CPT/HCPCS: 36415; 36416; 43235; 71045; 80048; 80053; 81003; 82607; 82962; 83605; 84132; 85014; 85018; 85025; 85610; 86850; 86900; 86920; 87040; 96372; C9113; J0744; J1815; J2370; J2704; J7030; P9016; S0030

== ENCOUNTER → 2021-09-03 09:11 | Outpatient (BNVA) | payer MEDICARE, SELFPAY | PROVIDERS: Visit Provider Internal Medicine | DX: Z01.812 Encounter for preprocedural laboratory examination (principal); Z20.822 Contact with and (suspected) exposure to COVID-19; K57.92 Diverticulitis of intestine, part unspecified, without perforation or abscess without bleeding | CPT/HCPCS: 87635 ==

== ENCOUNTER 2021-09-10 05:58 | Day surgery (SDC) | payer MEDICARE, SELFPAY ==
[2021-09-07 10:05] VITALS: BMI 26.6
[2021-09-10 06:13] VITALS: BP 116/75; PULSE 74; RESP 18; TEMP 36.5; O2SAT 98
[2021-09-10] MEDS: sodium chloride 0.9% 1,000 ML 30 ML IV (06:19)
--- NOTE | 2021-09-10 06:55 | ANES.PREANE2 ---
Pre-Anesthetic Assessment Pre-Anesthetic Assessment: Height/Weight: Height 1.75 m Weight 81.647 kg Temp Pulse Resp BP Pulse Ox 97.7 F 74 18 116/75 98 09/10/21 06:13 09/10/21 06:13 09/10/21 06:13 09/10/21 06:13 09/10/21 06:13 Preop Diagnosis: hematochezia Proposed Procedure: Operation Date: 09/10/21 07:00 Proposed Procedures p Colonoscopy 37814 K57.92(Not Applicable) - Librado Duval MD Familial anesthetic complications: none Was Beta Dewayne taken within 24 hours: Yes Was Clonidine taken within 24 hours: N/A Last intake: Intake Last Liquid Date 09/09/21 Last Liquid Time 20:00 Last Solid Date 09/08/21 Last Intake: 20:00 Social: Social History: No alcohol and No tobacco (stop 2005) Exam: Pre-Anes Outpt Exam: alert, oriented x 3, clear to auscultation bilaterally and regular rate & rhythm Airway: Submandibular: WNL Cervical ROM: WNL MP: 2 Dentition: False Pulmonary: Pulmonary: Asthma, COPD, MARTINEZ, Sleep apnea and SOB Comments: CPAP at night, 02 PRN during day CV/HEM: CV/HEM: CAD (CABG 6 in nov 2005. PTCA in 2008, Mitral valve replaced 2014), HTN and NE : : None reported Hepatic: Hepatic: None reported GI: GI: None reported Metabolic: Metabolic: None reported Musc/skel: Musc/skel: Lower Back Pain and OA/DJD Neuropsych: Neuropsych: None reported Anesthetic Plan: ASA status: 3 Anesthesia: MAC Risk of > 500 ml blood loss (7ml/kg in children): No Meds/Allergies Current Medications: Current Medications Generic Name Dose Route Start Last Admin Trade Name Freq PRN Reason Stop Dose Admin Sodium Chloride 1,000 mls @ 30 ml s/hr 09/10/21 06:15 09/10/21 06:19 Sodium Chloride 0.9% IV 09/11/21 06:14 30 mls/hr .Q24H NEELIMA Administration PFSH Anesthesia PFSH: Medical History Atrial fibrillation Carotid artery stenosis CHF (congestive heart failure) Chronic kidney disease COPD (chronic obstructive pulmonary disease) Gout History of common carotid artery stent placement Restless leg syndrome Sleep apnea Type 2 diabetes mellitus Surgical History History of amputation Several toes following cardiac surgery History of coronary artery bypass graft Mitral valve replaced Tissue valve Family History Other CAD (coronary artery disease) Social History Smoking and tobacco status: former smoker Alcohol intake: never Data Anesthesia Cardiac Studies: No Data to Display
--- NOTE | 2021-09-10 07:17 | P.HP_ITS ---
Same Day Surgery H&P Indication for Procedure/HPI DATE OF PROCEDURE: September 10, 2021 CHIEF COMPLAINT/INDICATIONFOR SURGICAL PROCEDURE: GI bleed PREOP DIAGNOSIS: hematochezia PLANNED PROCEDRUE: Operation Date: 09/10/21 07:00 Proposed Procedures p Colonoscopy 00663 K57.92(Not Applicable) - Librado Duval MD Medications/Allergies* Home Medications Medication Instructions Recorded Confirmed Type albuterol sulfate 2 puff INHALATION Q6H PRN 07/27/21 09/10/21 History allopurinol 100 mg PO BID 07/27/21 09/10/21 History carvedilol 6.25 mg PO BID 07/27/21 09/10/21 History furosemide 20 mg PO TID MDD see pharmacy 07/27/21 09/10/21 History comment potassium chloride 20 meq PO TID 07/27/21 09/10/21 History ropinirole See Rx Instructions .ROUTE .COMPLEX 07/27/21 09/10/21 History hydrocodone-acetaminophen 1 tab PO TID PRN 07/28/21 09/10/21 History Allergies/Adverse Reactions Allergy/AdvReac Type Severity Reaction Status Date / Time morphine Allergy Mild ADR-Confusi Verified 09/10/21 06:39 on Penicillins Allergy ALGY-Rash Verified 09/10/21 06:39 Current Medications: Generic Name Dose Route Start Last Admin Trade Name Freq PRN Reason Stop Dose Admin Sodium Chloride 1,000 mls @ 30 mls/hr 09/10/21 06:15 09/10/21 06:19 Sodium Chloride 0.9% IV 09/11/21 06:14 30 mls/hr .Q24H NEELIMA Administration Pertinent History/Comorbid Conditions* Medical History (Updated 08/15/21 @ 10:49 by Librado Duval MD) Atrial fibrillation Carotid artery stenosis CHF (congestive heart failure) Chronic kidney disease COPD (chronic obstructive pulmonary disease) Gout History of common carotid artery stent placement Restless leg syndrome Sleep apnea Type 2 diabetes mellitus Surgical History (Updated 07/27/21 @ 14:51 by Boogie Pugh MD) History of amputation Several toes following cardiac surgery History of coronary artery bypass graft Mitral valve replaced Tissue valve Family History (Updated 07/27/21 @ 15:03 by Boogie Pugh MD) CAD (coronary artery disease) Social History Smoking and tobacco status: former smoker Alcohol intake: never Pertinent Exam Findings alert, oriented x 3, clear to auscultation bilaterally, regular rate & rhythm, operative site marked and procedure specific exam findings Recommendations Surgery/Procedure today Coding Level of Care Code Acute Cardiac Cath Lab Technologist for Fidelina Martin
[2021-09-10 07:28] VITALS: BP 102/65; PULSE 81; RESP 16; TEMP 36.2; O2SAT 91
[2021-09-10 07:40] VITALS: BP 114/73; PULSE 83; RESP 16; O2SAT 94
--- NOTE | 2021-09-10 14:52 | ANE.PACU2 ---
Inpatient post-anesthesia follow up: Airway intact: Yes Vital signs: Temperature 97.2 F Pulse Rate 83 Respiratory Rate 16 Blood Pressure 114/73 Pulse Oximetry 94 Oxygen Delivery Me thod Room Air Oxygen Flow Rate Fraction of Inspir ed Oxygen Hydration adequate: Yes Nausea and vomiting: No Pain level: 2 Mental status: Baseline
== END 2021-09-10 07:57 | disposition home or self-care (01) ==
PROVIDERS: PCP Family Medicine; Visit Provider Internal Medicine
PROC: 0DJD8ZZ Inspection of Lower Intestinal Tract, Via Natural or Artificial Opening Endoscopic (ICD-10-PCS; CPT 45378; principal; 2021-09-10 07:00)
DX: K92.1 Melena (principal); K57.30 Diverticulosis of large intestine without perforation or abscess without bleeding; E11.9 Type 2 diabetes mellitus without complications; N18.9 Chronic kidney disease, unspecified; I50.9 Heart failure, unspecified; Z88.5 Allergy status to narcotic agent; Z88.0 Allergy status to penicillin; Z87.891 Personal history of nicotine dependence; Z95.1 Presence of aortocoronary bypass graft
CPT/HCPCS: 45378; 96360; J2704; J7030